=== PATIENT | male | born 1985 ===

== ENCOUNTER 2021-11-01 11:39 | Emergency (ER) | payer OTHER ==
[~2021-11-01] VITALS: Ht 180.3 cm; Wt 90.7 kg
[2021-11-01 11:46] VITALS: BP 121/89
== END 2021-11-01 14:04 | disposition home or self-care (01) ==
LOC: EDH 11:39
DX: T18.9XXA Foreign body of alimentary tract, part unspecified, initial encounter (principal); F31.9 Bipolar disorder, unspecified; X58.XXXA Exposure to other specified factors, initial encounter; Y93.89 Activity, other specified; Y92.89 Other specified places as the place of occurrence of the external cause; Y99.8 Other external cause status
CPT/HCPCS: 71045; 74018